=== PATIENT | female | born 1950 | race Caucasian/White ===

== ENCOUNTER 2024-12-12 17:43 | Emergency (ER) | payer MEDICARE ==
[~2024-12-12] VITALS: Ht 165.1 cm; Wt 136.5 kg
[2024-12-12] MEDS ORDERED: VAZALORE81 MG PO (18:23)
[2024-12-12] MEDS ORDERED: METHIMAZOLE10 MG PO (18:23)
[2024-12-12] MEDS ORDERED: FUROSEMIDE40 MG PO (18:24)
[2024-12-12] MEDS ORDERED: JARDIANCE25 MG PO (18:24)
[2024-12-12] MEDS ORDERED: ZETIA10 MG PO (18:24)
[2024-12-12] MEDS ORDERED: ZESTRIL5 MG PO (18:25)
[2024-12-12] MEDS ORDERED: DILTIAZEM ER120 M2 PO (18:25)
[2024-12-12] MEDS ORDERED: METOPROLOL SUC100 MG PO (18:26)
[2024-12-12] MEDS ORDERED: KLOR-CON 1010 MEQ PO (18:26)
[2024-12-12] MEDS ORDERED: JANTOVEN5 MG PO (18:27)
[2024-12-12] MEDS ORDERED: FLUTICASONE PRO16 GM NAS (18:27)
[2024-12-12] MEDS ORDERED: WARFARIN SODIU7.5 MG PO (18:27)
[2024-12-12] MEDS ORDERED: IRON236 MG PO (18:28)
[2024-12-12] MEDS ORDERED: ALLERGY RELIEF10 MG PO (18:28)
[2024-12-12] MEDS ORDERED: NITROGLYCERIN PACKET TOP ONE (18:45)
[2024-12-12] MEDS ORDERED: FUROSEMIDE 40 MG/4 ML VIAL IV ONE (18:45)
[2024-12-12] MEDS ORDERED: ALBUTEROL/IPRATROPIUM 3 ML NEB INH PRN (18:45)
[2024-12-12 19:12] LABS: BASOPHILS 1.0 % (0.1-1.2); EOSINOPHILS 2.4 % (0.7-5.8); LYMPHOCYTES 15.0 % (19.3-51.7); MCH 25.0 PG (25.6-32.2); MCHC 29.4 g/dL (32.2-35.5); MCV 84.9 fL (79.4-94.8); MONOCYTES 8.7 % (4.7-12.5); NEUTROPHILS 72.4 % (34.0-71.1); RBC 3.32 M/uL (3.93-5.22)
[2024-12-12 19:20] LABS: CORONAVIRUS COVID-19 AG NEGATIVE (NEGATIVE)
[2024-12-12 19:25] LABS: INR 1.89 (0.80-1.30); PROTIME 20.5 Sec (11.2-14.2)
[2024-12-12 19:38] LABS: ALT (SGPT) 26.0 U/L (14-59); AST (SGOT) 22.0 U/L (15-37); GLOMERULAR FILTRATION RATE,EST 35.0 mL/min (>60); PROTEIN, TOTAL 6.8 g/dL (6.4-8.2); UREA NITROGEN 38.0 mg/dL (7-18)
--- OUTSIDE RECORDS SUMMARY | 2024-12-12 19:43 | XMS ---
PreManage Notification: JOE CARRILLO Security Audio Video Mechanic Events No recent Security Events currently on file CRITERIA MET - [facility] - 2 Visits in 30 Days CARE PROVIDERS DANIEL SUTTON Internal Medicine Current REGINALD PHONE: [phone] Patti Osuna Family [facility] Current PHONE: Unknown [facility]O CASAS Family Medicine Current PHONE: [phone] JAMEL VALDEZ Family Medicine Current PHONE: [phone] YURY CROUCH Nurse Practitioner: Family Current PHONE: Unknown Rekha has no Care Guidelines for this patient. EMegan VISIT COUNT (12 MO.) [address] [facility] NOTE: Visits indicate total known visits. ED/UCC VISIT TRACKING (12 MO.) 12/12/2024 17:44 AISHWARYA King TYPE: Emergency COMPLAINT: - SOB 12/03/2024 03:57 [facility] TYPE: Emergency DIAGNOSES: - snf (current) use of anticoagulants - Otorrhagia, right ear 11/05/2024 06:20 [facility] TYPE: Emergency DIAGNOSES: - Acute respiratory failure with hypoxia - Heart failure, unspecified - snf (current) use of anticoagulants - Paroxysmal atrial fibrillation - Problems related to living alone 03/27/2024 22:09 [facility] TYPE: Emergency DIAGNOSES: - Dyspnea, unspecified - Radiculopathy, site unspecified INPATIENT VISIT TRACKING (12 MO.) No inpatient visits to display in this time frame [email or web address]
[2024-12-12 22:07] VITALS: BP 117/55
--- NOTE | 2024-12-14 13:55 | EKG ---
[facility] [address] [facility] [place] [address] Signed Sinus rhythm with premature atrial complexes Left bundle branch block Abnormal ECG No previous ECGs available Confirmed by Lara Luther MD () on 12/14/2024 1:55:01 PM Electronically Signed By: LARA LUTHER MD 12/14/24 1355 PATIENT NAME: JOE CARRILLO Electrocardiogram DATE OF : 54 PHYSICIAN: LARA LUTHER MD REPORT #: [id number] REPORT IS CONFIDENTIAL AND NOT TO BE RELEASED WITHOUT AUTHORIZATION
== END 2024-12-12 22:08 | disposition home or self-care (01) ==
LOC: ED 17:43
PROVIDERS: Emergency Medicine
DX: I11.0 Hypertensive heart disease with heart failure (principal); I50.9 Heart failure, unspecified; J44.9 Chronic obstructive pulmonary disease, unspecified; I48.91 Unspecified atrial fibrillation; E11.9 Type 2 diabetes mellitus without complications; Z79.01 Long term (current) use of anticoagulants; Z88.0 Allergy status to penicillin; Z91.018 Allergy to other foods; Z79.82 Long term (current) use of aspirin; Z79.890 Hormone replacement therapy
CPT/HCPCS: 36415; 71045; 80053; 83735; 83880; 84484; 85025; 85610; 93005; 93010; 94640; 96374; 99285-25; J1938